=== PATIENT | male | born 1960 | race Two or more races ===

== ENCOUNTER 2025-04-12 15:41 | Emergency (ER) | payer OTHER ==
[~2025-04-12] VITALS: Ht 165.1 cm; Wt 75.7 kg
[2025-04-12] MEDS ORDERED: ROSUVASTATIN CA10 MG PO (17:01)
[2025-04-12] MEDS ORDERED: KETOROLAC TROMETHAMINE 15 MG VIAL IU ONE (17:45)
[2025-04-12] MEDS ORDERED: 0.9 % SODIUM CHLORIDE 1,000 ML IV SCH (17:45)
[2025-04-12] MEDS ORDERED: FAMOTIDINE/PF 20 MG in 0.9 % SODIUM CHLORIDE 8 ML IV PUSH ONE (17:45)
[2025-04-12] MEDS ORDERED: ONDANSETRON HCL 4 MG in 0.9 % SODIUM CHLORIDE 50 ML IV ONE (17:45)
[2025-04-12] MEDS ORDERED: TAMSULOSIN HCL 0.4 MG CAP PO ONE ×2 (17:45→18:04)
[2025-04-12] MEDS ORDERED: ONDANSETRON HCL 2 MG/ML VIAL ONE (18:04)
[2025-04-12] MEDS ORDERED: KETOROLAC TROMETHAMINE 30 MG VIAL ONE (18:04)
[2025-04-12] MEDS ORDERED: FAMOTIDINE/PF 20 MG/2 ML VIAL ONE (18:04)
[2025-04-12 19:13] LABS: ERYTHROCYTE SEDIMENTATION RATE 34 mm/hr (0-20)
[2025-04-12 19:16] LABS: BASO % 0.4 % (0.1-1.2); EOS # 0.16 (0.04-0.54); EOS % 1.9 % (0.7-7.0); LYMPH # 1.78 (1.18-3.74); LYMPH % 21.7 % (19.3-53.1); MEAN PLATELET VOLUME 9.90 fl (9.4-12.4); MONO # 0.84 (0.24-0.82); MONO % 10.2 % (4.7-12.5); NEUT # 5.39 (1.56-6.13); NEUT % 65.6 % (34.0-71.1); RED CELL DISTRIBUTION WIDTH 11.8 % (11.6-14.4)
[2025-04-12 19:32] LABS: URINE APPEARANCE Clear; URINE BILIRRUBIN Negative (NEGATIVE); URINE BLOOD Large; URINE COLOR Yellow; URINE GLUCOSE Negative (NEGATIVE); URINE KETONE Negative (NEGATIVE); URINE LEUKOCYTE Negative; URINE NITRATE Negative; URINE PROTEIN Negative (NEGATIVE); URINE UROBILINOGEN 0.2 E.U./dl
[2025-04-12 19:33] LABS: INR 0.99
[2025-04-12 19:35] LABS: URINE BACTERIA 167.0 uL (0.0-1933); URINE EPITHELIAL CELLS 11.9 uL (0.0-38.8); URINE RBC 1795.3 uL (0.0-20.8); URINE WBC 51.3 uL (0.0-23.2)
[2025-04-12 19:42] LABS: ALT/SGPT 19.0 U/L (12-78); AST/SGOT 14.0 U/L (15-37); BILIRUBIN TOTAL 0.36 mg/dL (0.3-1.2); BUN CREA RATIO 13.0 (7.0-25.0); CREATININE SERUM 1.34 mg/dL (0.70-1.30); GFR 53.17; GLOBULINA 3.9 G/DL (2.4-3.5); GLUCOSE FASTING 95.0 mg/dL (65-100); OSMOLALITY SERUM 285.0 MOSM/KG (275-295)
[2025-04-12 19:48] LABS: URINE CAST 0.14 uL (0.0-1.40)
== END 2025-04-13 00:02 | disposition left against medical advice (07) ==
LOC: ER 15:41
PROVIDERS: General Practice
DX: R10.24 Suprapubic pain (principal); Z85.038 Personal history of other malignant neoplasm of large intestine; I10 Essential (primary) hypertension; E78.49 Other hyperlipidemia; N40.0 Benign prostatic hyperplasia without lower urinary tract symptoms; N32.0 Bladder-neck obstruction
CPT/HCPCS: 36415; 74176; 96365; 99284; J1885; J2405; J3490